=== PATIENT | male | born 1955 | race Caucasian/White ===

== ENCOUNTER 2020-06-14 07:55 | Observation (INO) | payer BC, OTHER ==
[2020-06-12 16:01] LABS: BASOPHILS % 0.4 % (0.0-1.0); EOSINOPHILS # (AUTO) 0.2 (0.0-0.4); EOSINOPHILS % 2.3 % (0.0-6.0); HEMATOCRIT 44.8 % (38.2-49.6); HEMOGLOBIN 14.8 g/dL (14.0-18.0); LYMPHOCYTES # (AUTO) 1.7 (1.0-3.2); LYMPHOCYTES % 23.3 % (18.0-39.1); MEAN CORPUSCULAR HEMOGLOBIN 30.1 pg (28-32); MEAN CORPUSCULAR VOLUME 91.1 fL (81-99); MONOCYTES # (AUTO) 0.6 (0.2-0.8); MONOCYTES % 8.3 % (4.4-11.3); NEUTROPHILS # (AUTO) 4.6 (2.1-6.9); NEUTROPHILS % 65.3 % (38.7-80.0); PLATELET COUNT 179 x10e3/uL (140-360); RED BLOOD COUNT 4.92 x10e6/uL (4.3-5.7); RED CELL DISTRIBUTION WIDTH 13.8 % (11.7-14.4)
[2020-06-12 16:09] LABS: INR 0.92; PROTHROMBIN TIME 12.9 seconds (11.9-14.5)
[2020-06-12 16:10] LABS: PARTIAL THROMBOPLASTIN TIME 30.2 seconds (23.8-35.5)
[2020-06-12 16:14] LABS: ANION GAP 13.1 mmol/L (8-16); BLOOD UREA NITROGEN 17 mg/dL (7-26); BUN/CREATININE RATIO 22 (6-25); CALCIUM 8.6 mg/dL (8.4-10.2); CARBON DIOXIDE 22 mmol/L (22-29); CHLORIDE 107 mmol/L (98-107); CREATININE, SERUM 0.77 mg/dL (0.72-1.25); EST GLOMERULAR FILTRATION RATE > 60 ML/MIN (60-); GLUCOSE 124 mg/dL (74-118); POTASSIUM 4.1 mmol/L (3.5-5.1); SODIUM 138 mmol/L (136-145)
[~2020-06-14] VITALS: Ht 177.8 cm; Wt 99.8 kg
[~2020-06-14 07:55] MED LIST: ACETAMINOPHEN 1000 MG/100 ML 100 ML IV ONE; ACTOS15 MG PO; CELEBREX100 MG PO; JANUVIA50 MG PO; LIDOCAINE HCL (LTA) 4 ML SOLN ONE; LYRICA100 MG PO; MICARDIS80 MG PO; PRILOSEC20 MG PO; SYNTHROID75 MCG PO; TRAMADOL HCL100 MG PO; VYTORIN 10-401 EACH PO
[2020-06-14] MEDS ORDERED: CEFAZOLIN SOD 1 GM/NS 50ML 100 ML IV ONE (08:45)
[2020-06-14] MEDS ORDERED: LIDOCAINE 1% W/EPINEPHRINE 20 ML VIAL ONE (09:17)
[2020-06-14] MEDS ORDERED: THROMBIN FOR SOLN 5,000 UNIT VIAL ONE (09:17)
[2020-06-14] MEDS ORDERED: VANCOMYCIN HCL 1 GM VIAL ONE (09:17)
[2020-06-14] MEDS ORDERED: HYDROCODON-ACE1 EA12 PO (12:09)
[2020-06-14] MEDS ORDERED: MAGNESIUM/ALUMINUM/SIMETHICONE 30 ML UDC PO PRN (12:15)
[2020-06-14] MEDS: LACTATED RINGER'S 1,000 ML IV SCH ×2 (12:15→20:35)
[2020-06-14] MEDS ORDERED: ACETAMINOPHEN 325 MG TAB PO PRN (12:15)
[2020-06-14] MEDS ORDERED: CEPACOL SORE THROAT LOZENGES PO PRN (12:15)
[2020-06-14] MEDS ORDERED: HYDROCODONE/APAP 7.5MG-325MG 1 EA TAB PO PRN (12:15)
[2020-06-14] MEDS ORDERED: PROMETHAZINE HCL (IM) 25 MG/ML VIAL IM PRN (12:15)
[2020-06-14] MEDS ORDERED: ONDANSETRON HCL INJ 2MG/ML 2ML 2 MG/ML VIAL IV PRN (12:15)
[2020-06-14] MEDS ORDERED: HYDROMORPHONE 2MG/ML 2 MG/ML ML IV PRN (12:15)
[2020-06-14] MEDS ORDERED: MORPHINE SULFATE 5 MG/ML VIAL IM PRN (12:15)
[2020-06-14] MEDS ORDERED: HYDROMORPHONE 1MG/1ML INJ ONE (12:36)
[2020-06-14] MEDS ORDERED: FENTANYL CITRATE/PF 100MCG/2 ML INJ ONE (13:22)
[2020-06-14] MEDS ORDERED: MIDAZOLAM HCL 2 MG/2 ML VIAL ONE (13:22)
[2020-06-14 14:40] VITALS: BP 156/82
[2020-06-14] MEDS ORDERED: TRAMADOL HCL 50 MG TAB PO PRN (14:45)
[2020-06-14 15:56] VITALS: BP 156/82
[2020-06-14] MEDS: PREGABALIN 50 MG CAP PO SCH (17:42)
[2020-06-14] MEDS: CELECOXIB 100 MG CAP PO SCH (17:42)
[2020-06-14] MEDS: CEFAZOLIN SOD 1 GM/NS 50ML 50 ML IV SCH (18:05)
[2020-06-14 20:00] VITALS: BP 135/81
[2020-06-14] MEDS ORDERED: ZOLPIDEM TARTRATE 5 MG TAB PO PRN (21:00)
[2020-06-14 23:43] VITALS: BP 156/82
[2020-06-15] VITALS: BP 140/73
[2020-06-15] MEDS: OXYCODONE/ACETAMINOPHEN 5-325 1 EACH TABLET PO PRN ×2 (02:06→06:30)
[2020-06-15] MEDS: CEFAZOLIN SOD 1 GM/NS 50ML 50 ML IV SCH ×2 (02:06→09:48)
[2020-06-15] MEDS: CARISOPRODOL 350 MG TAB PO PRN ×2 (02:06→06:30)
[2020-06-15 04:00] VITALS: BP 127/94
[2020-06-15] MEDS: LACTATED RINGER'S 1,000 ML IV SCH (04:55)
[2020-06-15] MEDS ORDERED: LEVOTHYROXINE SODIUM 75 MCG TAB PO SCH (06:00)
[2020-06-15 08:00] VITALS: BP 143/80
[2020-06-15 08:35] VITALS: BP 143/80
[2020-06-15] MEDS ORDERED: NON-FORMULARY MEDICATION (Ezetimibe/Simvastatin (Vytorin 10-40 Mg Tablet) 1 TAB) PO SCH (09:00)
[2020-06-15] MEDS ORDERED: NON-FORMULARY MEDICATION (Sitagliptin Phosphate* (Januvia*) 50 MG) PO SCH (09:00)
[2020-06-15] MEDS ORDERED: EZETIMIBE 10 MG TAB PO SCH (09:00)
[2020-06-15] MEDS ORDERED: OMEPRAZOLE 20 MG CAP PO SCH (09:00)
[2020-06-15] MEDS ORDERED: PIOGLITAZONE HCL 15 MG TAB PO SCH (09:00)
[2020-06-15] MEDS ORDERED: SITAGLIPTIN 100 MG TAB PO SCH (09:00)
[2020-06-15] MEDS ORDERED: TELMISARTAN 40 MG TAB PO SCH (09:00)
[2020-06-15] MEDS: PREGABALIN 50 MG CAP PO SCH (09:47)
[2020-06-15] MEDS: CELECOXIB 100 MG CAP PO SCH (09:47)
[2020-06-15] MEDS ORDERED: SIMVASTATIN 40 MG TAB PO SCH (21:00)
== END 2020-06-15 11:30 | disposition home or self-care (01) ==
LOC: OR 07:55 → PACU V 12:15 → MED/SURG 14:14
PROVIDERS: ADMIT Neurological Surgery; ATTEND Neurological Surgery
DX: M50.11 Cervical disc disorder with radiculopathy, high cervical region (principal); E11.9 Type 2 diabetes mellitus without complications; I10 Essential (primary) hypertension; E78.5 Hyperlipidemia, unspecified; E03.9 Hypothyroidism, unspecified; Z90.49 Acquired absence of other specified parts of digestive tract; Z01.810 Encounter for preprocedural cardiovascular examination; Z01.812 Encounter for preprocedural laboratory examination; Z01.818 Encounter for other preprocedural examination; Z20.822 Contact with and (suspected) exposure to COVID-19; K21.9 Gastro-esophageal reflux disease without esophagitis; I25.10 Atherosclerotic heart disease of native coronary artery without angina pectoris; Z98.61 Coronary angioplasty status
CPT/HCPCS: 20931; 22551; 22845; 36415 ×3; 71046; 72040; 72050; 80048; 82948 ×2; 85025; 85610; 85730; 86850; 86900; 88304; 88311; 93005; C1713 ×4; C1763; G0378 ×2; J0131; J0690 ×2; J1170 ×2; J2405; J3370; U0002; 77003; J2250; J3010

== ENCOUNTER → 2020-07-13 | Outpatient (CLI) | payer BC ==
[~2020-07-13] MED LIST changes: -ACETAMINOPHEN 1000 MG/100 ML 100 ML IV ONE; +HYDROCODON-ACE1 EA12 PO; -LIDOCAINE HCL (LTA) 4 ML SOLN ONE
== END ==
LOC: RAD 08:22
PROVIDERS: ATTEND Neurological Surgery
DX: M50.20 Other cervical disc displacement, unspecified cervical region (principal); M43.22 Fusion of spine, cervical region
CPT/HCPCS: 72050

== ENCOUNTER → 2021-06-03 | Day surgery (SDC) | payer BC ==
[2021-05-30 08:48] LABS: BASOPHILS % 0.6 % (0.0-1.0); EOSINOPHILS # (AUTO) 0.2 (0.0-0.4); EOSINOPHILS % 2.9 % (0.0-6.0); HEMATOCRIT 49.8 % (38.2-49.6); HEMOGLOBIN 15.7 g/dL (14.0-18.0); LYMPHOCYTES # (AUTO) 1.9 (1.0-3.2); LYMPHOCYTES % 25.9 % (18.0-39.1); MEAN CORPUSCULAR HEMOGLOBIN 30.5 pg (28-32); MEAN CORPUSCULAR HGB CONC 31.5 g/dL (31-35); MEAN CORPUSCULAR VOLUME 96.9 fL (81-99); MONOCYTES # (AUTO) 0.6 (0.2-0.8); MONOCYTES % 8.1 % (4.4-11.3); NEUTROPHILS # (AUTO) 4.4 (2.1-6.9); NEUTROPHILS % 62.1 % (38.7-80.0); PLATELET COUNT 170 x10e3/uL (140-360); RED BLOOD COUNT 5.14 x10e6/uL (4.3-5.7); RED CELL DISTRIBUTION WIDTH 14.5 % (11.7-14.4)
[2021-05-30 09:10] LABS: PARTIAL THROMBOPLASTIN TIME 28.2 seconds (23.8-35.5)
[2021-05-30 09:11] LABS: ALBUMIN 3.9 g/dL (3.5-5.0); ANION GAP 14.4 mmol/L (8-16); CALCIUM 9.4 mg/dL (8.4-10.2); CHOL/HDL RATIO 2.6 (3.9-4.7); CREATININE, SERUM 0.96 mg/dL (0.72-1.25); POTASSIUM 4.4 mmol/L (3.5-5.1)
[2021-05-30 09:30] LABS: INR 0.9; PROTHROMBIN TIME 12.8 seconds (11.9-14.5)
[2021-06-03] VITALS (8 sets, daily range): BP systolic 108–150; BP diastolic 53–91
[~2021-06-03] VITALS: Ht 177.8 cm; Wt 106.6 kg
[~2021-06-03] MED LIST changes: +ADENOSINE 3MG/1ML 30ML VIAL ONE; +ASPIRIN 325 MG TAB ONE; +CLOPIDOGREL BISULFATE 75 MG TAB ONE; +CRESTOR10 MG PO; +FENTANYL CITRATE/PF 100MCG/2 ML INJ ONE; +FLOMAX0.4 MG PO; +HEPARIN SOD (PORCINE) 1000 UNIT/ML 30ML ONE; +HEPARIN SOD/SOD CHLORIDE 2,000 ML ONE; +IOPAMIDOL 370 MG/ML 200 ML INFUS..BTL INJ ONE; +LIDOCAINE HCL 2% LOCAL 20 ML VIAL ONE; +METOPROLOL SUCC25 MG PO; +MIDAZOLAM HCL 2 MG/2 ML VIAL ONE; +NITROGLYCERIN/D5W 200 MCG/ML 250 ML ONE; +SODIUM CHLORIDE 0.9% 1000ML 0 ML ONE; +SODIUM CHLORIDE 0.9% 50ML 50 ML ONE; +VERAPAMIL HCL 2.5 MG/ML 2 ML VIAL ONE
== END | disposition home or self-care (01) ==
LOC: CATH LAB 07:14
PROVIDERS: ATTEND Internal Medicine Cardiovascular Disease
DX: I25.118 Atherosclerotic heart disease of native coronary artery with other forms of angina pectoris (principal); I10 Essential (primary) hypertension; E78.2 Mixed hyperlipidemia; E11.59 Type 2 diabetes mellitus with other circulatory complications; Z01.812 Encounter for preprocedural laboratory examination; Z20.822 Contact with and (suspected) exposure to COVID-19; Z79.82 Long term (current) use of aspirin; Z79.84 Long term (current) use of oral hypoglycemic drugs; Z79.899 Other long term (current) drug therapy; Z68.34 Body mass index [BMI] 34.0-34.9, adult; Z82.49 Family history of ischemic heart disease and other diseases of the circulatory system; Z83.3 Family history of diabetes mellitus
CPT/HCPCS: 36415; 80053; 80061; 85025; 85610; 85730; 92928; 93458; 93571; C1769; C1876; C1887; J0153; J1644; J2001; J2250; J3010; Q9967; U0002; 99152; 99153; J7030